=== PATIENT | male | born 1960 | race Caucasian/White ===

== ENCOUNTER 2024-05-03 05:33 | Day surgery (SDC) | payer OTHER ==
[2024-04-27 15:30] LABS: BASOPHILS % (AUTO) 0.6 % (0-1); EOSINOPHILS # (AUTO) 0.1 X10'3 (0-0.9); LYMPHOCYTES # (AUTO) 2.2 X10'3 (1.1-4.8); LYMPHOCYTES % (AUTO) 30.7 % (21-51); MEAN CORPUSCULAR HEMOGLOBIN 29.9 PG (27.0-31.0); MEAN CORPUSCULAR HGB CONC 33.8 g/dL (33.0-36.5); MEAN CORPUSCULAR VOLUME 88.3 FL (78-98); MEAN PLATELET VOLUME 8.6 FL (7.4-10.4); MONOCYTES # (AUTO) 0.6 X10'3 (0-0.9); MONOCYTES % (AUTO) 8.2 % (2-12); NEUTROPHILS # (AUTO) 4.3 X10'3 (1.8-7.7); NEUTROPHILS % (AUTO) 58.5 % (42-75); PRE OP HEMOGLOBIN 14.9 g/dL (14.0-17.9); PRE OP PLATELET COUNT 257 X10'3 (140-440); PRE OP WHITE BLOOD COUNT 7.3 10'3 (4.8-10.8); RED BLOOD COUNT 4.99 X10'6 (4.70-6.10); RED CELL DISTRIBUTION WIDTH 13.5 % (11.5-14.5)
[2024-04-27 15:40] LABS: ALBUMIN 3.7 G/DL (3.4-5.0); ALBUMIN/GLOBULIN RATIO 0.9 (1.1-1.5); ALKALINE PHOSPHATASE 50 IU/L (46-116); BLOOD UREA NITROGEN 16 MG/DL (7-18); BUN/CREATININE RATIO 15.1 (10.0-20.0); CALCIUM 8.9 MG/DL (8.5-10.1); CHLORIDE 103 MMOL/L (99-107); CREATININE 1.06 MG/DL (0.60-1.10); PRE OP ALT 53 U/L (30-65); PRE OP ANION GAP 6 (8-16); PRE OP AST 27 U/L (10-37); PRE OP BILIRUB, TOTAL 0.7 MG/DL (0.0-1.0); PRE OP GLUCOSE 94 MG/DL (70-104); PRE OP SODIUM 139 MMOL/L (135-145); eGFR 71 ML/MIN
[2024-05-03] VITALS (9 sets, daily range): BP systolic 95–146; BP diastolic 60–87; PULSE 71–86; RESP 10–16; TEMP 97.1; O2SAT 94–98
[~2024-05-03] VITALS: Ht 175.3 cm; Wt 101.5 kg
[2024-05-03] MEDS: ceFAZolin 2gm in dextrose, iso 50 ML IV ONE (05:30)
[~2024-05-03 05:33] MED LIST: LORA10TA7 PO
[2024-05-03] MEDS: ringers solution, lacted 1,000 ML IV SCH (06:45)
[2024-05-03] MEDS: famotidine 20mg tablet PO ONE (06:47)
[2024-05-03] MEDS ORDERED: BUPIVAcaine 2.5mg/ml inj 50ml vial (contains preservative) ONE (06:57)
[2024-05-03] MEDS ORDERED: bacitracin 15gm ointment TP ONE (06:57)
[2024-05-03] MEDS ORDERED: fentaNYL/PF 50MCG/1 ML 2ML syringe ONE (07:17)
[2024-05-03] MEDS ORDERED: propofol inj 20 ML IV ONE (07:18)
[2024-05-03] MEDS ORDERED: midazolam 1 mg/ML 2ml injection ONE (07:18)
[2024-05-03] MEDS ORDERED: ondansetron/PF 4mg/2ml inj IV PRN (07:25)
[2024-05-03] MEDS ORDERED: morphine 2 MG/ML inj. syringe IV PRN (07:25)
[2024-05-03] MEDS ORDERED: morphine 4 MG/ML inj SYRINge IV PRN (07:25)
[2024-05-03] MEDS ORDERED: ringers solution, lacted 1,000 ML IV SCH (07:25)
[2024-05-03] MEDS ORDERED: meperidine/PF 25mg/ml syringe IV PRN (07:25)
[2024-05-03] MEDS ORDERED: proCHLORperazine 10 MG/2 ml inj IV PRN (07:25)
[2024-05-03] MEDS ORDERED: sevoflurane 250ml liquid IH ONE (07:31)
[2024-05-03] MEDS: meperidine/PF 25mg/ml syringe IV PRN ×2 (09:02→09:36)
== END 2024-05-03 10:08 | disposition home or self-care (01) ==
LOC: PAS 05:33
PROVIDERS: ATTEND Podiatrist Foot & Ankle Surgery
DX: M21.6X2 Other acquired deformities of left foot (principal); M76.72 Peroneal tendinitis, left leg; G47.33 Obstructive sleep apnea (adult) (pediatric); I25.2 Old myocardial infarction; Z87.891 Personal history of nicotine dependence; Z79.1 Long term (current) use of non-steroidal anti-inflammatories (NSAID); Z79.82 Long term (current) use of aspirin; Z79.891 Long term (current) use of opiate analgesic; Z79.899 Other long term (current) drug therapy; Z98.890 Other specified postprocedural states; Z88.5 Allergy status to narcotic agent
CPT/HCPCS: 28118; 28122; 36415; 73620; 80053; 82948; 85025; 93005; A6223; J0690; J1100; J2175; J2250; J2405; J2704; J3010; J3490; J7030; J7120; Z7506; Z7508; Z7512; 76000; A4618; A6253; A6449; A7000